=== PATIENT | female | born 1990 | race Two or more races ===

== ENCOUNTER 2022-09-22 18:36 | Emergency (ER) | payer OTHER ==
--- NOTE | 2022-09-22 20:31 | NUR ---
CALLED TO TRIAGE NO RESPONSE
--- NOTE | 2022-09-22 21:00 | NUR ---
CALLED TO TRIAGE NO RESPONSE
--- NOTE | 2022-09-22 21:21 | NUR ---
CALLED TO TRIAGE NO RESPONSE
== END 2022-09-22 21:23 | disposition left against medical advice (07) ==
LOC: ER 18:46
DX: Z53.21 Procedure and treatment not carried out due to patient leaving prior to being seen by health care provider (principal)

== ENCOUNTER 2023-12-11 23:20 | Emergency (ER) | payer OTHER ==
[~2023-12-11] VITALS: Ht 175.3 cm; Wt 95.3 kg
[2023-12-11] MEDS ORDERED: ERYT3.5O9 EACHEYE (23:55)
[2023-12-11] MEDS: ERYTHROMYCIN BASE OPHTH 3.5 GM TUBE OP ONE (23:59)
[2023-12-11] MEDS ORDERED: ERYTHROMYCIN BASE OPHTH 3.5 GM TUBE ONE (23:59)
[2023-12-12 02:29] VITALS: BP 136/81; TEMP 98.6; O2SAT 98
== END 2023-12-12 02:31 | disposition home or self-care (01) ==
LOC: ER 23:29
DX: H10.9 Unspecified conjunctivitis (principal)